=== PATIENT | male | born 1980 | race Caucasian/White ===

== ENCOUNTER → 2018-12-20 13:22 | Outpatient (POV) | payer OTHER, SELFPAY | PROVIDERS: PCP Family Medicine; Visit Provider Nurse Practitioner Family | DX: Z00.00 Encounter for general adult medical examination without abnormal findings (principal) ==

== ENCOUNTER 2022-06-13 22:03 | Emergency (ER) | payer OTHER, SELFPAY ==
[2022-06-13 22:04] VITALS: BP 176/97; PULSE 87; RESP 17; TEMP 36.8; O2SAT 98; BMI 57.7
--- NOTE | 2022-06-13 22:18 | HMH.EDWNDL ---
Discharge Plan Disposition Patient Disposition: Home, Self-Care Prescriptions Prescriptions: No Action diltiazem HCl 240 mg capsule,extended release 24hr 240 mg PO QDAY rivaroxaban [Xarelto] 20 mg tablet 20 mg PO QDAY sotalol 80 MG tablet 80 mg PO BID Label Comments: TAKE 1 TABLET BY MOUTH EVERY 12 HOURS lisinopril 5 MG tablet 5 mg PO DAILY polyethylene glycol 3350 17 GM powder in packet 17 gm PO DAILY psyllium husk 0.4 GM capsule 0.4 gm PO DAILY Referrals Follow up/Referrals: Francisco Christopher MD [Primary Care Provider] - See instructions Clinical Impressions Clinical Impression: Laceration Instructions Patient Instructions: DI for Laceration Repair Discharge ED Provider: Jyothi Zendejas Wound/Laceration HPI General Chief Complaint: Wound/Laceration Stated Complaint: ao 06/13, left hand lac Time Seen by Provider: 06/13/22 22:14 Mode of Arrival: Ambulatory Source of Information: Patient and Spouse ( at bedside) Limitations: No Limitations History of Present Illness HPI narrative: Patient is a 42-year male who is here secondary to left hand laceration. Patient cut his left hand on a sample box maker. Bleeding is controlled. Patient is on Xarelto for his atrial fib. Patient has no numbness or tingling no pain. Onset (ago): minute(s) Extremity Location: Left: hand (3cm ) Place: home Patient tetanus UTD: No Context: accidental Associated symptoms: none Related Data Home Medications Medication Instructions Recorded Confirmed diltiazem HCl 240 mg capsule,24 240 mg PO QDAY Anxiety 04/26/17 09/17/18 hr,extended release rivaroxaban 20 mg tablet (Xarelto) 20 mg PO QDAY heart. 04/26/17 09/17/18 lisinopril 5 mg tablet 5 mg PO DAILY bp 09/14/18 09/17/18 sotalol 80 mg tablet 80 mg PO BID bp 09/14/18 09/17/18 polyethylene glycol 3350 17 gram 17 gm PO DAILY constipation 09/17/18 09/17/18 oral powder packet psyllium husk 0.4 gram capsule 0.4 gm PO DAILY constipation 09/17/18 09/17/18 Allergies Allergy/AdvReac Type Severity Reaction Status Date / Time nitroglycerin AdvReac Intermediate Verified 09/17/18 09:14 [facility] Disclaimer: The information contained in this section may have been updated after the patient was seen, as this information can be updated by other users. Social History Smoking Status: Never smoker alcohol intake: never substance use type: other current occupational status: employed Travel in the last 8 weeks: None household members: family housing: house caffeine: Yes ROS Obtained: Yes All systems reviewed & no additional complaints except as documented Musculoskeletal Musculoskeletal: Reports other (Left hand laceration.) Physical Exam General General appearance: alert and in distress Head Head exam: atraumatic, normocephalic and normal inspection Eye Eye exam: Present normal appearance, PERRL and EOMI ENT ENT exam: Present normal exam, normal oropharynx and mucous membranes moist Neck Neck exam: Present normal inspection, full ROM and trachea midline Chest Chest inspection: Present normal inspection and symmetric chest wall rise Respiratory Respiratory exam: Present normal lung sounds bilaterally Cardiovascular Cardiovascular exam: Present regular rate, normal rhythm, normal heart sounds and +S1 Abdominal Exam Abdominal exam: Present soft and normal bowel sounds; Absent distention, tenderness, guarding, rebound or rigidity Extremities Exam Extremities exam: Present normal inspection, full ROM, tenderness (left hand web region 4 cm laceration) and normal capillary refill; Absent edema, joint swelling, calf tenderness or clubbing Back Exam Back exam: Present normal inspection and full ROM; Absent tenderness, CVA tenderness (R) or CVA tenderness (L) Neurological Exam Neurological exam: Present alert and oriented X3 Psychiatric Psychiatric exam: Present normal affect and normal mood Medical Decision
[2022-06-13 22:52] VITALS: BP 170/90; PULSE 80; RESP 18; TEMP 36.6; O2SAT 99
== END 2022-06-13 23:02 | disposition home or self-care (01) ==
PROVIDERS: Emergency Provider Emergency Medicine; PCP Family Medicine
DX: S61.412A Laceration without foreign body of left hand, initial encounter (principal); I48.91 Unspecified atrial fibrillation; W26.0XXA Contact with knife, initial encounter; Z79.01 Long term (current) use of anticoagulants; Z23 Encounter for immunization
CPT/HCPCS: 12002; 90471; 90714; 99283; 99284

== ENCOUNTER 2022-08-13 19:00 | Emergency (ER) | payer OTHER, SELFPAY ==
[2022-08-13 19:22] VITALS: BP 157/94; PULSE 82; RESP 20; TEMP 36.8; O2SAT 98; BMI 62.7
--- NOTE | 2022-08-13 19:23 | EXP.UTC ---
Discharge Plan Disposition Patient Disposition: Home, Self-Care Condition: Fair Prescriptions Prescriptions: No Action diltiazem HCl 240 mg capsule,extended release 24hr 240 mg PO QDAY rivaroxaban [Xarelto] 20 mg tablet 20 mg PO QDAY metformin 500 mg tablet 500 mg PO TID Label Comments: TAKE 1 TABLET BY MOUTH THREE TIMES A DAY FOR 90 DAYS albuterol sulfate 2.5 mg /3 mL (0.083 %) solution for nebulization 2.5 mg inhalation Q4HP PRN (Reason: Breathing Problems) Label Comments: USE 1 VIAL IN NEBULIZER DIRECTED EVERY 4 HOURS NEEDED amiodarone 200 mg tablet 200 mg PO DAILY Label Comments: TAKE 1 TABLET BY MOUTH EVERY DAY lisinopril 10 mg tablet 10 mg PO DAILY Label Comments: TAKE 1 TABLET BY MOUTH EVERY DAY polyethylene glycol 3350 17 GM powder in packet 17 gm PO DAILY psyllium husk 0.4 GM capsule 0.4 gm PO DAILY Referrals Follow up/Referrals: Francisco Christopher MD [Primary Care Provider] - See instructions Reynaldo Santos MD [Referring] - See instructions Clinical Impressions Clinical Impression: Gross hematuria, Low back pain Instructions Patient Instructions: DI for Hematuria Discharge ED Provider: Terry (ED),Anuj Guardado [facility] [place] General Chief complaint: Urogenital-Male Stated complaint: Blood in Urine Time Seen by Provider: 08/13/22 19:23 History of Present Illness Provider Complaint: He c/o low back pain that he rates as a 6/10 on pain scale since earlier today. He is also having gross hematuria. He does have a history of having kidney stones, but it has been about 15 years since he had a problem with one. Related Data Home Medications Medication Instructions Recorded Confirmed diltiazem HCl 240 mg capsule,24 240 mg PO QDAY Heart rhythm 04/26/17 08/13/22 hr,extended release rivaroxaban 20 mg tablet (Xarelto) 20 mg PO QDAY Blood thinner 04/26/17 08/13/22 polyethylene glycol 3350 17 gram 17 gm PO DAILY Constipation 09/17/18 08/13/22 oral powder packet psyllium husk 0.4 gram capsule 0.4 gm PO DAILY Constipation 09/17/18 08/13/22 albuterol sulfate 2.5 mg/3 mL 2.5 mg inhalation Q4HP PRN 08/13/22 08/13/22 (0.083 %) solution for nebulization Breathing Problems amiodarone 200 mg tablet 200 mg PO DAILY Heart rhythm 08/13/22 08/13/22 lisinopril 10 mg tablet 10 mg PO DAILY High blood pressure 08/13/22 08/13/22 metformin 500 mg tablet 500 mg PO TID Diabetes 08/13/22 08/13/22 Allergies Allergy/AdvReac Type Severity Reaction Status Date / Time nitroglycerin AdvReac Intermediate Verified 09/17/18 09:14 [facility] Disclaimer: The information contained in this section may have been updated after the patient was seen, as this information can be updated by other users. Social History Smoking Status: Never smoker alcohol intake: never substance use type: other current occupational status: employed Travel in the last 8 weeks: None household members: family housing: house caffeine: Yes ROS Obtained: Yes All systems reviewed & no additional complaints except as documented Constitutional Constitutional: Denies chills and Denies fever(s) Eyes Eyes: Denies eye discharge ENT Ears, Nose, Mouth, and Throat: Denies dizziness, Denies otalgia and Denies sore throat Cardiovascular Cardiovascular: Denies chest pain Respiratory Respiratory: Denies shortness of breath, Denies chest congestion, Denies cough, Denies stridor and Denies wheezing Gastrointestinal Gastrointestingal: Denies nausea or vomiting Genitourinary Male Genitourinary: Reports as per HPI, Reports hematuria and Reports urinary hesitancy Musculoskeletal Musculoskeletal: Reports system reviewed and no additional complaints, except as documented and Denies arthralgias Integumentary/Breasts Skin/Breast: Denies rash Neurologic Neurologic: Denies dizziness and Denies paresthesias Allergic/Immunologic
[2022-08-13 20:11] LABS: Apearance,Urine Cloudy (Clear); Color,Urine Amber (Yellow); Glucose,Urine (UA) Negative (Negative); Protein,Urine 2+ (Negative); Specific Gravity, Urine >= 1.030 (1.005-1.030)
[2022-08-13 20:12] LABS: Bilirubin,Urine 1+ (Negative); Blood, Urine 4+ (Negative); Ketones,Urine SMALL (Negative); UTC Leukocyte Esterase,Urine Negative (Negative); UTC Nitrate,Urine Negative (Negative); Urobilinogen,Urine 1 EU/dl (0.2)
[2022-08-13 20:15] VITALS: BP 141/87; PULSE 83; RESP 20; TEMP 36.8; O2SAT 97; BMI 62.9
--- NOTE | 2022-08-13 20:19 | CT_ITS ---
PROCEDURE INFORMATION: Exam: CT Abdomen And Pelvis With Contrast Exam date and time: 08/13/2022 9:12 PM Age: 42 years old Clinical indication: Abdominal pain; Localized; Lower; Additional info: Lower abdominal burning, hematuria, dysuria TECHNIQUE: Imaging protocol: Computed tomography of the abdomen and pelvis with contrast. Radiation optimization: All CT scans at this facility use at least one of these dose optimization techniques: automated exposure control; mA and/or kV adjustment per patient size (includes targeted exams where dose is matched to clinical indication); or iterative reconstruction. Contrast material: ISOVUE; Contrast volume: 90 ml; Contrast route: IV; REPORTING DATA: Count of CT and Cardiac NM exams in prior 12 months: This patient has received 0 known CTs and 0 known cardiac nuclear medicine studies in the 12 months prior to the current study. COMPARISON: No relevant prior studies available. FINDINGS: Liver: Potential nodular contour of the liver which is not well evaluated. Gallbladder and bile ducts: No calcified stones. No ductal dilation. Pancreas: Equivocal peripancreatic stranding. Spleen: No splenomegaly. Adrenal glands: No mass. Kidneys and ureters: Renal enhancement is not well evaluated. No hydronephrosis. Stomach and bowel: No obstruction. No mucosal thickening. Appendix: No evidence of appendicitis. Intraperitoneal space: No significant fluid collection. No free air. Vasculature: No abdominal aortic aneurysm. Lymph nodes: No enlarged lymph nodes. Urinary bladder: No acute abnormality. Reproductive: No acute abnormality. Bones/joints: No acute fracture. Soft tissues: Extensive subcutaneous adipose extending beyond the field of view. IMPRESSION: 1. Examination is significantly limited by quantum mottle. 2. Potential nodular contour of the liver which is not well evaluated. Correlation with LFTs recommended. 3. Equivocal peripancreatic stranding for which correlation with lipase is recommended. 4. Renal enhancement is not well evaluated. Can not exclude ascending urinary tract infection.
[2022-08-13 20:23] LABS: Microscopic, Urine URINE MICROSCOPIC (MICROSCOPIC)
[2022-08-13 20:55] LABS: Basophils % 0.4 % (0.1-2.0); Chloride 97 mmol/L (98-107); Eosinophils # 0.2 K/mm3 (0.0-0.4); Hematocrit 46.1 % (42.0-52.0); Hemoglobin 15.2 g/dL (14.1-18.0); Lymphocytes # 2.1 K/mm3 (0.7-4.5); Lymphocytes % 24.4 % (10-50); Mean Corpuscular HGB Conc 32.9 g/dL (31.8-35.4); Mean Corpuscular Hemoglobin 29.5 pg (27.0-31.2); Mean Corpuscular Volume 89.5 fl (80-94); Mean Platelet Volume 9.4 fl (7.4-10.4); Monocytes # 0.3 K/mm3 (0.1-1.0); Monocytes % 3.5 % (1.7-9.3); Neutrophils # 5.9 K/mm3 (1.8-7.8); Neutrophils % 69.7 % (37.0-80.0); Platelet Count 271 K/mm3 (142-424); Red Blood Count 5.15 M/mm3 (4.60-6.20); Red Cell Distribution Width 14.4 % (11.5-17.5); Sodium 139 mmol/L (136-145); White Blood Count 8.5 K/mm3 (4.8-10.8)
[2022-08-13 20:56] LABS: Appearance,Urine TURBID (Clear); Blood, Urine 3+ (Negative); Color,Urine BROWN (Yellow); Glucose,Urine (UA) Negative (Negative); Ketones,Urine 1+ (Negative); Leukocyte Esterase,Urine TRACE (Negative); Nitrate,Urine POSITIVE (Negative); PH,Urine 6.5 (5.0-8.5); Protein,Urine 2+ (Negative); Specific Gravity, Urine >= 1.030 (1.005-1.030)
[2022-08-13 20:58] LABS: Blood Urea Nitrogen 20 mg/dl (9-20); Carbon Dioxide 28 mmol/L (22.0-30.0); Creatinine Clearance Estimated 125 mL/min (50-200); Estimated Glomerular Filt Rate 107 ml/min (>60); GFR (African American) 129 ML/MIN (>60)
[2022-08-13 20:59] LABS: Calcium 9.4 mg/dl (8.4-10.2); Glucose 148 mg/dl (74-100)
--- NOTE | 2022-08-13 21:01 | HMH.EDUROGM ---
Discharge Plan Disposition Patient Disposition: Home, Self-Care Condition: Fair Prescriptions Prescriptions: No Action diltiazem HCl 240 mg capsule,extended release 24hr 240 mg PO QDAY rivaroxaban [Xarelto] 20 mg tablet 20 mg PO QDAY metformin 500 mg tablet 500 mg PO TID Label Comments: TAKE 1 TABLET BY MOUTH THREE TIMES A DAY FOR 90 DAYS albuterol sulfate 2.5 mg /3 mL (0.083 %) solution for nebulization 2.5 mg inhalation Q4HP PRN (Reason: Breathing Problems) Label Comments: USE 1 VIAL IN NEBULIZER DIRECTED EVERY 4 HOURS NEEDED amiodarone 200 mg tablet 200 mg PO DAILY Label Comments: TAKE 1 TABLET BY MOUTH EVERY DAY lisinopril 10 mg tablet 10 mg PO DAILY Label Comments: TAKE 1 TABLET BY MOUTH EVERY DAY polyethylene glycol 3350 17 GM powder in packet 17 gm PO DAILY psyllium husk 0.4 GM capsule 0.4 gm PO DAILY Referrals Follow up/Referrals: Francisco Christopher MD [Primary Care Provider] - See instructions Reynaldo Santos MD [Referring] - See instructions Clinical Impressions Clinical Impression: Gross hematuria, Low back pain Instructions Patient Instructions: DI for Hematuria Discharge ED Provider: Michi Rodriguez Male Urogenital HPI General Chief complaint: Urogenital-Male Stated complaint: Blood in Urine Time Seen by Provider: 08/13/22 19:23 Mode of Arrival: Ambulatory Source of Information: Patient, Spouse and Medical Record Limitations: No Limitations Description of Symptoms (Recalled from ER Triage Doc. by RN): 42 M presented to our [facility] from home with c/o hematuria and dysuria since 1500 today. This started suddening, and he has lower abdominal burning with low back pain, too. Denies fever or chills. States he had a UTI about a month ago, but no blood in his urine. History of Present Illness HPI Narrative: pt on xarelto and has lower abd pain and gross hematuria - hx of a fib MD Complaint: dysuria and other (hematuria) Onset (ago): hour(s) Duration: intermittent Severity: moderate Reports denies other symptoms Related Data Home Medications Medication Instructions Recorded Confirmed diltiazem HCl 240 mg capsule,24 240 mg PO QDAY Heart rhythm 04/26/17 08/13/22 hr,extended release rivaroxaban 20 mg tablet (Xarelto) 20 mg PO QDAY Blood thinner 04/26/17 08/13/22 polyethylene glycol 3350 17 gram 17 gm PO DAILY Constipation 09/17/18 08/13/22 oral powder packet psyllium husk 0.4 gram capsule 0.4 gm PO DAILY Constipation 09/17/18 08/13/22 albuterol sulfate 2.5 mg/3 mL 2.5 mg inhalation Q4HP PRN 08/13/22 08/13/22 (0.083 %) solution for nebulization Breathing Problems amiodarone 200 mg tablet 200 mg PO DAILY Heart rhythm 08/13/22 08/13/22 lisinopril 10 mg tablet 10 mg PO DAILY High blood pressure 08/13/22 08/13/22 metformin 500 mg tablet 500 mg PO TID Diabetes 08/13/22 08/13/22 Allergies Allergy/AdvReac Type Severity Reaction Status Date / Time nitroglycerin AdvReac Intermediate Verified 09/17/18 09:14 [facility] Disclaimer: The information contained in this section may have been updated after the patient was seen, as this information can be updated by other users. Social History Smoking Status: Never smoker alcohol intake: never substance use type: other current occupational status: employed Travel in the last 8 weeks: None household members: family housing: house caffeine: Yes ROS Obtained: Yes All systems reviewed & no additional complaints except as documented Physical Exam General General appearance: alert, in no apparent distress and obese Head Head exam: normocephalic Eye Eye exam: Present PERRL and EOMI ENT ENT exam: Present mucous membranes moist Neck Neck exam: Present trachea midline Respiratory Respiratory exam: Present normal lung sounds bilaterally; Absent respiratory distress Cardiovascular Cardiovascular exam: Pres
[2022-08-13 21:02] LABS: Bilirubin,Urine Negative (Negative)
[2022-08-13 21:29] LABS: RBC,Urine 50-100 #/hpf (0-3); Squamous Epithelial Cell,Urine Occasional #/hpf (0-5); WBC,Urine Occasional #/hpf (0-3)
[2022-08-13 21:30] LABS: Calcium Oxalate Crystals,Urine 1+ /lpf; Yeast,Urine Occasional /lpf
--- NOTE | 2022-08-13 21:59 | PC.NURSE ---
called rad for disc
[2022-08-13 22:23] VITALS: BP 133/79; PULSE 86; RESP 20; TEMP 36.8; O2SAT 97
== END 2022-08-13 22:23 | disposition home or self-care (01) ==
LOC: UTC 19:41 → ER 20:10
PROVIDERS: Nurse Practitioner Family; Emergency Provider Emergency Medicine; PCP Family Medicine
DX: R31.0 Gross hematuria (principal); M54.50 Low back pain, unspecified; Z79.01 Long term (current) use of anticoagulants
CPT/HCPCS: 74177; 80048; 81001; 81003; 85025; 87086; 96360; 99284; 99285; Q9967